=== PATIENT | male | born 1950 | race Two or more races ===

== ENCOUNTER 2017-06-12 07:52 | Emergency (ER) | payer OTHER ==
[~2017-06-12] VITALS: Ht 172.7 cm; Wt 99.8 kg
[2017-06-12 09:18] VITALS: BP 188/96
== END 2017-06-12 11:03 | disposition home or self-care (01) ==
LOC: ER 07:52
DX: S80.02XA Contusion of left knee, initial encounter (principal); S40.011A Contusion of right shoulder, initial encounter; I10 Essential (primary) hypertension; E11.9 Type 2 diabetes mellitus without complications; E78.5 Hyperlipidemia, unspecified; V49.9XXA Car occupant (driver) (passenger) injured in unspecified traffic accident, initial encounter; Y93.89 Activity, other specified; Y92.89 Other specified places as the place of occurrence of the external cause; Y99.8 Other external cause status
CPT/HCPCS: 73030; 73562